=== PATIENT | female | born 1995 | race Caucasian/White ===

== ENCOUNTER 2016-09-03 11:53 | Emergency (ER) | payer OTHER ==
[2016-09-03 12:03] VITALS: BP 141/89
== END 2016-09-03 14:21 | disposition home or self-care (01) ==
LOC: ED 11:53
DX: S40.011A Contusion of right shoulder, initial encounter (principal); M25.532 Pain in left wrist; V49.9XXA Car occupant (driver) (passenger) injured in unspecified traffic accident, initial encounter; Y93.89 Activity, other specified; Y99.8 Other external cause status; Y92.89 Other specified places as the place of occurrence of the external cause